=== PATIENT | male | born 1965 | race Two or more races ===

== ENCOUNTER 2018-10-01 06:44 | Inpatient (IN) | payer OTHER ==
[~2018-10-01] VITALS: Ht 177.8 cm; Wt 72.6 kg
[2018-10-01] MEDS ORDERED: COZAAR25 MG (07:05)
[2018-10-01] MEDS ORDERED: LIPITOR20 MG (07:05)
--- NOTE | 2018-10-01 07:05 | NUR ---
SE RECIBE PTE. MASCULINO ALERTA CONCIENTE Y ORIENTADO REFIERE DOLOR ABDOMINAL Y SANGRADO EN LA ESCRETA. REFIERE TIENE DIARREAS CON TG DESDE ANOCHE. SE PASA A AREA DE OBSERVACION Y UBICA EN AMINTA SE PRESENTA A MEDICO EN TUR[place]
--- NOTE | 2018-10-01 09:14 | NUR ---
SE ORIENTA PTE SOBRE EL TRATAMIENTO ORDENADO POR EL DR SINHA PTE ALERTA Y CONCIENTE POR 3 SE REALIZAN MUESTRAS DE LABORATORIO Y SE ADMINISTRAN MEDICAMENTO YULIANA ORDENADO, SE NOTIFICA ESTUDIO PENDIENTE, PTE SE MANTIENE EN OBSERVACION Y BAJO TRTAMIENTO.
[2018-10-05] MEDS ORDERED: CIPRO500 MG PO (07:51)
[2018-10-05] MEDS ORDERED: FLAGYL500MG PO (07:52)
[2018-10-05] MEDS ORDERED: PEPCID20 MG PO (07:52)
== END 2018-10-05 11:10 | disposition home or self-care (01) | DRG 391 ==
LOC: ER 06:44 → MEDI 19:07
PROVIDERS: ADMIT Student in an Organized Health Care Education/Training Program
PROC: BW21Y0Z Computerized Tomography (CT Scan) of Abdomen and Pelvis using Other Contrast, Unenhanced and Enhanced (ICD-10-PCS; principal; 2018-10-01)
DX: K57.20 Diverticulitis of large intestine with perforation and abscess without bleeding (principal); K65.1 Peritoneal abscess; K52.89 Other specified noninfective gastroenteritis and colitis

== ENCOUNTER 2020-02-02 10:14 | Outpatient (CLI) | payer OTHER ==
[~2020-02-02 10:14] MED LIST: CIPRO500 MG PO; COZAAR25 MG; FLAGYL500MG PO; LIPITOR20 MG; PEPCID20 MG PO
== END 2020-02-02 10:28 | disposition home or self-care (01) ==
LOC: LAB 10:14
DX: J11.1 Influenza due to unidentified influenza virus with other respiratory manifestations (principal); R53.81 Other malaise; R50.9 Fever, unspecified; Z20.828 Contact with and (suspected) exposure to other viral communicable diseases

== ENCOUNTER 2023-04-25 16:16 | Emergency (ER) | payer OTHER ==
[~2023-04-25] VITALS: Ht 177.8 cm; Wt 74.8 kg
== END 2023-04-25 19:47 | disposition home or self-care (01) ==
LOC: ER 16:16
DX: S61.411A Laceration without foreign body of right hand, initial encounter (principal); W45.8XXA Other foreign body or object entering through skin, initial encounter; Y93.89 Activity, other specified; Y92.89 Other specified places as the place of occurrence of the external cause; Y99.9 Unspecified external cause status; I10 Essential (primary) hypertension; Z88.6 Allergy status to analgesic agent

== ENCOUNTER 2023-05-14 11:23 | Inpatient (IN) | payer OTHER ==
[~2023-05-14] VITALS: Ht 177.8 cm; Wt 74.8 kg
--- NOTE | 2023-05-14 11:56 | NUR ---
PTE REFIERE DOLOR ABDOMINAL DESDE ESTA MANANA ACOMPANADO DE SCOTTIE EVACUACION CON TG JAIME BRILLANTE. SE ACOMODA EN AREA DE PASILLO.
--- NOTE | 2023-05-14 12:52 | NUR ---
PTE ALERTA Y ORIENTADO X3, PEÑA LOPEZ ORIENTA SOBRE TX MEDICO Y EL MISMO REFIERE ENTENDER. SE COLECTAN MUESTRAS DE TG BAJO MEDIDAS ASEPTICAS. SE HACE ENTREGA DE ENVASE PARA U/A Y FECAL LEONID. SE NOTIFICA CT W/O A SECRETARIA DE TUR[place].
--- NOTE | 2023-05-14 16:05 | NUR ---
SE RECIBE PACIENTE ALERTA Y ORIENTADO X 3 ESFERAS EN PASILLO. PRESENTANDO BUEN PATRON RESPIRATORIO. RECIBIENDO IV'S 0.9NSS BAJANDO 200ML/HR AREA DE VENOPUNCION RUBY DE EDEMA Y ERITEMA. PENDIENTE CT ABDOMEN/PELVICO PO. SE MANTIENE EN OBSERVACION POR CAMBIOS.
[2023-05-19] MEDS ORDERED: METRONIDAZOLE500 MG PO (09:24)
[2023-05-19] MEDS ORDERED: LOSARTAN POTASS25 MG PO (09:24)
[2023-05-19] MEDS ORDERED: FAMOTIDINE20 MG PO (09:24)
[2023-05-19] MEDS ORDERED: CIPRO500 MG PO (09:24)
[2023-05-19] MEDS ORDERED: LIPITOR20 MG PO (09:24)
[2023-05-19] MEDS ORDERED: INTESTINEX680 M2 PO (09:24)
== END 2023-05-19 13:48 | disposition home or self-care (01) | DRG 386 ==
LOC: ER 11:23 → MEDI 20:50
PROVIDERS: Emergency Medicine; General Practice; ADMIT Internal Medicine; ATTEND Internal Medicine
PROC: BW21YZZ Computerized Tomography (CT Scan) of Abdomen and Pelvis using Other Contrast (ICD-10-PCS; principal; 2023-05-14)
DX: K51.00 Ulcerative (chronic) pancolitis without complications (principal); K62.5 Hemorrhage of anus and rectum; E86.0 Dehydration; I10 Essential (primary) hypertension; E78.5 Hyperlipidemia, unspecified; Z20.822 Contact with and (suspected) exposure to COVID-19